=== PATIENT | male | born 1985 | race Caucasian/White ===

== ENCOUNTER 2016-07-31 04:07 | Emergency (ER) | payer OTHER ==
[~2016-07-31] VITALS: Ht 170.2 cm; Wt 72.6 kg
[2016-07-31 04:07] VITALS: BP_SYST 113
[2016-07-31] MEDS ORDERED: MAG HYDROX/AL HYDROX/SIMETH 30 ML, LIDOCAINE VISCOUS 2% 15ML (PO) 10 ML, BELLADONNA ALK... PO ONE ×3 (04:30)
[2016-07-31 04:56] LABS: CALCIUM 8.8 mg/dL (8.4-11.0); CREATININE 1.19 mg/dL (0.55-1.30); POTASSIUM 4.1 mmol/L (3.5-5.1)
[2016-07-31 04:59] LABS: BASOPHILS # (AUTO) 0.1 K/uL (0.0-0.2); EOSINOPHILS # (AUTO) 0.1 K/uL (0.0-0.4); EOSINOPHILS % (AUTO) 1.1 % (0.0-4.0); HEMATOCRIT 43.4 % (36-54); HEMOGLOBIN 14.4 g/dL (14.0-18.0); LYMPHOCYTES # (AUTO) 1.7 K/uL (1.0-5.5); MEAN CORPUSCULAR HEMOGLOBIN 29 pg (27-31); MEAN CORPUSCULAR HGB CONC 33 % (32-36); MEAN CORPUSCULAR VOLUME 87 fL (79.0-98.0); MONOCYTES % (AUTO) 7.9 % (1.7-9.3); NEUTROPHILS # (AUTO) 9.3 K/uL (1.8-7.7); PLATELET COUNT (AUTO) 214 K/uL (130-430); RED BLOOD CELL COUNT(AUTO) 4.98 MIL/uL (4.2-6.2); RED CELL DISTRIBUTION WIDTH 12.3 % (9.0-15.0); WHITE BLOOD COUNT (AUTO) 12.2 K/uL (4.8-10.8)
[2016-07-31 05:41] VITALS: BP_SYST 113
== END 2016-07-31 05:41 | disposition home or self-care (01) ==
LOC: SED 04:07
DX: K29.00 Acute gastritis without bleeding (principal); R05 Cough
CPT/HCPCS: 36415; 71010; 80048; 84484; 85025; 93005; 99285; J2001